=== PATIENT | male | born 1990 | race Caucasian/White ===

== ENCOUNTER 2020-02-11 14:14 | Emergency (ER) | payer BC ==
[~2020-02-11] VITALS: Ht 180.3 cm; Wt 77.1 kg
--- NOTE | 2020-02-11 14:30 | NUR ---
Dr Curran at the bedside for MSE.
[2020-02-11] MEDS ORDERED: IBUPROFEN 800 MG TABLET PO ONE (14:45)
[2020-02-11] MEDS ORDERED: IBUPROFEN 800 MG TABLET ONE (14:45)
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
--- NOTE | 2020-02-11 16:31 | NUR ---
Patient discharged to home in stable condition. Written and verbal after care instructions given. Patient verbalizes understanding of instructions. Stressed follow up or return to ER for worsening s/s. Pt walked out of ER w/ steady gait.
[2020-02-11 16:32] VITALS: BP 120/66
== END 2020-02-11 16:33 | disposition home or self-care (01) ==
LOC: ER 14:18
DX: S29.9XXA Unspecified injury of thorax, initial encounter (principal); V43.52XA Car driver injured in collision with other type car in traffic accident, initial encounter; Y92.410 Unspecified street and highway as the place of occurrence of the external cause
CPT/HCPCS: 71101; A4663